=== PATIENT | male | born 1965 | race Caucasian/White ===

== ENCOUNTER 2016-09-25 09:49 | Day surgery (SDC) | payer OTHER ==
--- NOTE | ~2016-09-25 | EGD ---
EGD REPORT [facility] [address] [address] NAME: TARAS MARTINEZ : [birth year] STATUS : REG [facility]#: [id number] AGE: 51 ADM/REG DATE : 09/25/16 MR#: [id number] REPORT SERV DATE: 09/25/16 DICTATED BY: DATE: REPORT STATUS : Draft TRANSCRIBED BY: [employer] DATE: 09/25/16 [facility] Patient Name: Taras Martinez Date of : 1965 Attending MD: KAYLYNN RANKIN MD Procedure Date No Time: 09/25/2016 Procedure: Upper GI endoscopy Indications: Follow-up of esophageal varices Referring MD: GEORGIE GRIJALVA Medicines: Monitored Anesthesia Care Complications: No immediate complications. Procedure: Pre-Anesthesia Assessment: - ASA Grade Assessment: III - A patient with severe systemic disease. After obtaining informed consent, the endoscope was passed under direct vision. Throughout the procedure, the patient's blood pressure, pulse, and oxygen saturations were monitored continuously. The GIF H190 [id number] was introduced through the mouth, and advanced to the second part of duodenum. The upper GI endoscopy was accomplished without difficulty. The patient tolerated the procedure well. Findings: Grade III varices with no bleeding were found in the lower third of the esophagus in the lower third of the esophagus. The varices had red ravi signs. Seven bands were successfully placed with incomplete eradication of varices. There was no bleeding during, and at the end, of the procedure. There is no endoscopic evidence of hiatus hernia or ulcerations in the entire esophagus. Severe portal hypertensive gastropathy was found in the entire examined stomach. There is no endoscopic evidence of ulceration or varices in the entire examined stomach. A few erosions without bleeding were found in the duodenal bulb. There is no endoscopic evidence of mucosal abnormalities or ulceration in the entire examined duodenum. The cardia and gastric fundus were normal on retroflexion. Impression: - Grade III esophageal varices. Incompletely eradicated. Banded. - Portal hypertensive gastropathy. - Duodenal erosions without bleeding. EGD REPORT [address] [address] NAME: TARAS MARTINEZ : [birth year] STATUS : REG [facility]#: [id number] AGE: 51 ADM/REG DATE : 09/25/16 MR#: [id number] REPORT SERV DATE: 09/25/16 DICTATED BY: DATE: REPORT STATUS : Draft TRANSCRIBED BY: [employer] DATE: 09/25/16 Recommendation: - Patient has a contact number available for emergencies. The signs and symptoms of potential delayed complications were discussed with the patient. Return to normal activities tomorrow. Written discharge instructions were provided to the patient. - Soft diet today. - Use Protonix (pantoprazole) 40 mg PO daily. - Perform an H. pylori serology at appointment to be scheduled. - Repeat the upper endoscopy in 3 weeks for retreatment. - Continue present medications. - No aspirin, ibuprofen, naproxen, or other non-steroidal anti-inflammatory drugs. Procedure Code(s): --- Professional --- 60671, Esophagogastroduodenoscopy, flexible, transoral; with band ligation of esophageal/gastric varices Diagnosis Code(s): --- Professional --- I85.00, Esophageal varices without bleeding K76.6, Portal hypertension K31.89, Other diseases of stomach and duodenum K26.9, Duodenal ulcer, unspecified as acute or chronic, without hemorrhage or perforation CPT copyright 2013 [employer]. All rights reserved. The codes documented in this report are preliminary and upon quality control lab tech review may be revised to meet current compliance requirements. KAYLYNN RANKIN MD 09/25/2016 2:23 PM This report has been signed electronically. Number of Addenda: 0 Note Initiated On: 09/25/2016 2:02 PM Scope Withdrawal Time 0 hours 0 minutes 0 seconds [address] [place] [address]
[~2016-09-25 09:49] MED LIST: AMILORID5B PO; ATEN50 PO; CONSTULOSE PO; COQ-10200 MG OR; COR40 PO; DEMA100 PO; DEMA20 PO; IMDUR60 PO; KLOR-CON20 MEQ PO; LORTAB 5 PO; MEPHYTON 5 MG TA5 MG PO; NORV25 PO; SPIRIVA INH; SYMBICORT 160/41 INH INH; SYN.15 PO; UNITHROID175 MCG PO; VENTOLIN HFA INH; XIFAXAN550 MG PO
[2016-10-14] MEDS ORDERED: PROTONIX PO (12:22)
[2016-11-14] MEDS ORDERED: TRULICITY0.75 MG/0. SQ (13:00)
== END 2016-09-25 23:59 | disposition home health service (06) ==
LOC: DMU 09:49
PROVIDERS: Internal Medicine Gastroenterology
PROC: 0W3P8ZZ Control Bleeding in Gastrointestinal Tract, Via Natural or Artificial Opening Endoscopic (ICD-10-PCS; principal; 2016-09-25 11:30)
DX: I85.00 Esophageal varices without bleeding (principal); K76.6 Portal hypertension; K26.9 Duodenal ulcer, unspecified as acute or chronic, without hemorrhage or perforation; I10 Essential (primary) hypertension; E11.9 Type 2 diabetes mellitus without complications; J44.9 Chronic obstructive pulmonary disease, unspecified; Z88.8 Allergy status to other drugs, medicaments and biological substances
CPT/HCPCS: 82962; 85049; A9270-GY

== ENCOUNTER 2016-10-23 05:29 | Day surgery (SDC) | payer OTHER ==
--- NOTE | ~2016-10-23 | EGD ---
EGD REPORT [facility] [address] [address] NAME: TARAS MARTINEZ : [birth year] STATUS : REG [facility]#: [id number] AGE: 51 ADM/REG DATE : 10/23/16 MR#: [id number] REPORT SERV DATE: 10/23/16 DICTATED BY: DATE: REPORT STATUS : Draft TRANSCRIBED BY: [employer] DATE: 10/23/16 [facility] Patient Name: Taras Martinez Date of : 1965 Attending MD: KAYLYNN RANKIN MD Procedure Date No Time: 10/23/2016 Procedure: Upper GI endoscopy Indications: Follow-up of esophageal varices, For therapy of esophageal varices Referring MD: ALBERTO VELIZ Medicines: Monitored Anesthesia Care Complications: No immediate complications. Procedure: Pre-Anesthesia Assessment: - ASA Grade Assessment: IV - A patient with severe systemic disease that is a constant threat to life. After obtaining informed consent, the endoscope was passed under direct vision. Throughout the procedure, the patient's blood pressure, pulse, and oxygen saturations were monitored continuously. The GIF H190 [id number] was introduced through the mouth, and advanced to the second part of duodenum. The upper GI endoscopy was accomplished without difficulty. The patient tolerated the procedure well. Findings: Two superficial esophageal ulcers with stigmata of prior treatment and scarring from prior treatment were found in the lower third of the esophagus. Grade III varices were found in the lower third of the esophagus. Three bands were successfully placed with incomplete eradication of varices. There was no bleeding during, and at the end, of the procedure. Diffuse moderately erythematous mucosa without bleeding was found in the entire examined stomach. No other significant abnormalities were identified in a careful examination of the stomach. There is no endoscopic evidence of ulceration or varices in the entire examined stomach. The examined duodenum was normal. There is no endoscopic evidence of inflammation, mucosal abnormalities or ulceration in the entire examined duodenum. The cardia and gastric fundus were normal on retroflexion. Impression: - Non-bleeding esophageal ulcers from healing previous EBL sites. - Grade III esophageal varices. Incompletely eradicated. EGD REPORT [address] [address] NAME: TARAS MARTINEZ : [birth year] STATUS : [place] [facility] [id number] AGE: 51 ADM/REG DATE : 10/23/16 MR#: [id number] REPORT SERV DATE: 10/23/16 DICTATED BY: DATE: REPORT STATUS : Draft TRANSCRIBED BY: [employer] DATE: 10/23/16 Banded. - Erythematous mucosa in the stomach. Improved - Normal examined duodenum. Recommendation: - Patient has a contact number available for emergencies. The signs and symptoms of potential delayed complications were discussed with the patient. Return to normal activities tomorrow. Written discharge instructions were provided to the patient. - Return to previous diet. - Discharge patient to home. - Continue present medications. - Repeat the upper endoscopy in 4 weeks for retreatment. Procedure Code(s): --- Professional --- 59777, Esophagogastroduodenoscopy, flexible, transoral; with band ligation of esophageal/gastric varices Diagnosis Code(s): --- Professional --- K22.10, Ulcer of esophagus without bleeding I85.00, Esophageal varices without bleeding K31.9, Disease of stomach and duodenum, unspecified CPT copyright 2013 [employer]. All rights reserved. The codes documented in this report are preliminary and upon tire trucker review may be revised to meet current compliance requirements. KAYLYNN RANKIN MD 10/23/2016 9:11 AM This report has been signed electronically. Number of Addenda: 0 Note Initiated On: 10/23/2016 7:26 AM Scope Withdrawal Time 0 hours 0 minutes 0 seconds [address] [place] [address]
[~2016-10-23 05:29] MED LIST changes: +PROTONIX PO
[2016-10-23 07:09] LABS: ALBUMIN 3.1 G/DL (3.5-5.0); ALKALINE PHOSPHATASE 168 U/L (45-117); BUN (BLOOD UREA NITROGEN) 9 MG/DL (6-23); CALCIUM, SERUM 8.3 MG/DL (8.5-10.4); CHLORIDE, SERUM 105 MMOL/L (96-112); CO2 (CARBON DIOXIDE) 33 MMOL/L (24-34); CREATININE 0.72 MG/DL (0.70-1.30); DIRECT BILIRUBIN 0.9 MG/DL (0.0-0.4); GFR AFRICAN AMERICAN 127 ML/MIN (>=60); GFR NON AFRICAN AMERICAN 110 ML/MIN (>=60); GLUCOSE, SERUM 123 MG/DL (60-99); POTASSIUM, SERUM 2.7 MMOL/L (3.5-5.3); SGOT(AST) 42 U/L (5-40); SGPT(ALT) 36 U/L (5-65); SODIUM, SERUM 146 MMOL/L (135-148); TOTAL BILIRUBIN 2.9 MG/DL (0-1.2); TOTAL PROTEIN 6.4 G/DL (6.0-8.5)
[2016-11-14] MEDS ORDERED: TRULICITY0.75 MG/0. SQ (13:00)
== END 2016-10-23 23:59 | disposition home or self-care (01) ==
LOC: DMU 05:29
PROVIDERS: Internal Medicine Gastroenterology
PROC: 06L34CZ Occlusion of Esophageal Vein with Extraluminal Device, Percutaneous Endoscopic Approach (ICD-10-PCS; principal; 2016-10-23 07:30)
DX: I85.00 Esophageal varices without bleeding (principal); K22.10 Ulcer of esophagus without bleeding; K31.9 Disease of stomach and duodenum, unspecified; I10 Essential (primary) hypertension; J44.9 Chronic obstructive pulmonary disease, unspecified; E11.9 Type 2 diabetes mellitus without complications; E03.9 Hypothyroidism, unspecified; K74.60 Unspecified cirrhosis of liver; Z88.8 Allergy status to other drugs, medicaments and biological substances; Z87.442 Personal history of urinary calculi; Z90.49 Acquired absence of other specified parts of digestive tract
CPT/HCPCS: 80048; 80076; 82962; A9270-GY

== ENCOUNTER 2016-11-20 10:27 | Day surgery (SDC) | payer OTHER ==
--- NOTE | ~2016-11-20 | EGD ---
EGD REPORT [facility] [address] [address] NAME: TARAS MARTINEZ : [birth year] STATUS : REG [facility]#: [id number] AGE: 51 ADM/REG DATE : 11/20/16 MR#: [id number] REPORT SERV DATE: 11/20/16 DICTATED BY: DATE: REPORT STATUS : Draft TRANSCRIBED BY: [employer] DATE: 11/20/16 [facility] Patient Name: Taras Martinez Date of : 1965 Attending MD: KAYLYNN RANKIN MD Procedure Date No Time: 11/20/2016 Procedure: Upper GI endoscopy Indications: Follow-up of esophageal varices Referring MD: ALBERTO VELIZ Medicines: Monitored Anesthesia Care Complications: No immediate complications. Procedure: Pre-Anesthesia Assessment: - ASA Grade Assessment: III - A patient with severe systemic disease. After obtaining informed consent, the endoscope was passed under direct vision. Throughout the procedure, the patient's blood pressure, pulse, and oxygen saturations were monitored continuously. The GIF H190 [id number] was introduced through the mouth, and advanced to the second part of duodenum. The upper GI endoscopy was accomplished without difficulty. The patient tolerated the procedure well. Findings: A scar was found in the lower third of the esophagus. No other significant abnormalities were identified in a careful examination of the esophagus. There is no endoscopic evidence of areas of erosion, ulcerations or varices in the entire esophagus. Moderate portal hypertensive gastropathy was found in the entire examined stomach. No other significant abnormalities were identified in a careful examination of the stomach. There is no endoscopic evidence of mucosal abnormalities, ulceration or varices in the entire examined stomach. The examined duodenum was normal. There is no endoscopic evidence of inflammation, mucosal abnormalities or ulceration in the entire examined duodenum. The cardia and gastric fundus were normal on retroflexion. Impression: - Scar in the lower third of the esophagus. - Portal hypertensive gastropathy. - Normal examined duodenum. Recommendation: - Patient has a contact number available for EGD REPORT [address] [address] NAME: TARAS MARTINEZ : [birth year] STATUS : REG [facility]#: [id number] AGE: 51 ADM/REG DATE : 11/20/16 MR#: [id number] REPORT SERV DATE: 11/20/16 DICTATED BY: DATE: REPORT STATUS : Draft TRANSCRIBED BY: [employer] DATE: 11/20/16 emergencies. The signs and symptoms of potential delayed complications were discussed with the patient. Return to normal activities tomorrow. Written discharge instructions were provided to the patient. - Return to previous diet. - Discharge patient to home. - Continue present medications. - Repeat the upper endoscopy in 6 months for surveillance. Procedure Code(s): --- Professional --- 57098, Esophagogastroduodenoscopy, flexible, transoral; diagnostic, including collection of specimen(s) by brushing or washing, when performed (separate procedure) Diagnosis Code(s): --- Professional --- K22.8, Other specified diseases of esophagus K76.6, Portal hypertension K31.89, Other diseases of stomach and duodenum I85.00, Esophageal varices without bleeding CPT copyright 2013 [employer]. All rights reserved. The codes documented in this report are preliminary and upon medical coder review may be revised to meet current compliance requirements. KAYLYNN RANKIN MD 11/20/2016 1:19 PM This report has been signed electronically. Number of Addenda: 0 Note Initiated On: 11/20/2016 12:59 PM Scope Withdrawal Time 0 hours 0 minutes 0 seconds [address] [id number]
[~2016-11-20 10:27] MED LIST changes: +TRULICITY0.75 MG/0. SQ
== END 2016-11-20 23:59 | disposition home or self-care (01) ==
LOC: DMU 10:27
PROVIDERS: Internal Medicine Gastroenterology
PROC: 0DJ08ZZ Inspection of Upper Intestinal Tract, Via Natural or Artificial Opening Endoscopic (ICD-10-PCS; principal; 2016-11-20 14:30)
DX: K22.8 Other specified diseases of esophagus (principal); K31.89 Other diseases of stomach and duodenum; K76.6 Portal hypertension; E66.9 Obesity, unspecified; I10 Essential (primary) hypertension; J44.9 Chronic obstructive pulmonary disease, unspecified; Z90.49 Acquired absence of other specified parts of digestive tract; Z98.890 Other specified postprocedural states; E03.9 Hypothyroidism, unspecified; E11.9 Type 2 diabetes mellitus without complications
CPT/HCPCS: 82962; 84132; 85049